=== PATIENT | female | born 1945 | race Caucasian/White ===

== ENCOUNTER 2021-08-24 07:20 | Day surgery (SDC) | payer MEDICARE, MEDICAID ==
[~2021-08-24 07:20] MED LIST: Sodium Chloride 0.9% 10 ML Syringe FLUSH PRN
[2021-08-24] MEDS ORDERED: Propofol 200 MG/20 ML SDV IV ONE (07:21)
[2021-08-24] MEDS: Lactated Ringers 1,000 ML IV SCH (07:50)
[2021-08-24] MEDS: Albuterol/Ipratropium 3.0-0.5 MG/3 ML Neb Soln NEB ONE (07:57)
--- NOTE | 2021-08-24 08:52 | PCM.HP.2 ---
H&P History of Present Illness - General Date of Service: 08/24/21 Admit Problem/Dx: Admission Diagnosis/Problem Admission Diagnosis/Problem Colonoscopy Source of Information: Patient, Old Records History Limitations: Reports: No Limitations - History of Present Illness Initial Comments - Free Text/Narative: Here for colonoscopy for change in bowel habits - Related Data Allergies/Adverse Reactions: Allergies Allergy/AdvReac Type Severity Reaction Status Date / Time lactulose Allergy Cannot Verified 08/24/21 07:37 Remember metoclopramide [From Reglan] Allergy Cannot Verified 08/24/21 07:37 Remember Home Medications: Home Meds Acetaminophen [Tylenol Extra Strength] 1,000 mg PO TID 08/23/21 [History] Albuterol Sulfate [Albuterol Sulfate Hfa] 2 puff INH Q6H PRN 08/23/21 [History] Alendronate [Fosamax] 35 mg PO Q7D 08/23/21 [History] Carboxymethylcellulose Sodium [Refresh Tears] 1 drop EYEBOTH TID 08/23/21 [History] Cyanocobalamin (Vitamin B12) [Vitamin B12] 1,000 mcg INJECT Q30D 08/23/21 [History] DULoxetine [Cymbalta] 60 mg PO DAILY 08/23/21 [History] Diclofenac Sodium [Voltaren 1% Gel] 2 gm TOP BID PRN 08/23/21 [History] Ergocalciferol (Vitamin D2) [Vitamin D2] 50,000 unit PO Q7D 08/23/21 [History] Ferrous Sulfate 325 mg PO Q48H 08/23/21 [History] Fluticasone Propionate [Flonase] 1 spray NASBOTH DAILY 08/23/21 [History] Fluticasone/Vilanterol [Breo Ellipta 100-25 MCG Inhalation Kit] 1 puff INH DAILY 08/23/21 [History] Gabapentin [Neurontin] 800 mg PO QID 08/23/21 [History] Ketoconazole [Ketoconazole 2%] 1 applic TOP BID 08/23/21 [History] Lidocaine 5% [Lidoderm 5%] 1 patch TOP DAILY PRN 08/23/21 [History] Melatonin 6 mg PO BEDTIME 08/23/21 [History] Omeprazole Magnesium [Prilosec Otc] 20 mg PO DAILY 08/23/21 [History] Sennosides/Docusate Sodium [Senna-Docusate Sodium Tablet] 1 tab PO DAILY 08/23/21 [History] atorvaSTATin Calcium [Lipitor] 20 mg PO DAILY 08/23/21 [History] levETIRAcetam [Keppra] 750 mg PO BID 08/23/21 [History] polyethylene glycoL 3350 [MiraLAX] 17 gm PO DAILY 08/23/21 [History] traZODone 50 mg PO BEDTIME 08/23/21 [History] valACYclovir [Valtrex] 1,000 mg PO 08/23/21 [History] Past Medical History HEENT History: Reports: None, Cataract Cardiovascular History: Reports: High Cholesterol, Hypertension Respiratory History: Reports: Asthma, COPD Gastrointestinal History: Reports: Diverticulosis, Irritable Bowel Syndrome Genitourinary History: Reports: None [employer] ASSISTANT History: Reports: None Musculoskeletal History: Reports: Back Pain, Chronic, Neck Pain, Chronic Neurological History: Reports: Neuropathy, Peripheral, Seizure, Other (See Below) Other Neuro History: INSOMNIA Psychiatric History: Reports: Anxiety, Depression, Other (See Below) Other Psychiatric History: DEPENDENT PERSONALITY DISORDER. DYSTHYMIC DISORDER Endocrine/Metabolic History: Reports: Diabetes, Type II, Other (See Below) Other Endocrine/Metabolic History: NONALCOHOLIC LIVER DISEASE Hematologic History: Reports: None Immunologic History: Reports: None Oncologic (Cancer) History: Reports: None Dermatologic History: Reports: None - Past Surgical History Head Surgeries/Procedures: Reports: Craniotomy HEENT Surgical History: Reports: Adenoidectomy, Cataract Surgery, Tonsillectomy Cardiovascular Surgical History: Reports: None Respiratory Surgical History: Reports: None GI Surgical History: Reports: Cholecystectomy Female Surgical History: Reports: Hysterectomy Endocrine Surgical History: Reports: Thyroidectomy Neurological Surgical History: Reports: Other (See Below) Other Neurological Surgeries/Procedures: BENIGN BRAIN TUMOR WITH CRANIOTOMY EXCISION 03/01/12 Musculoskeletal Surgical History: Reports: Knee Replacement Oncologic Surgical History: Reports: None Dermatological Surgical History: Reports: None H&P Review of Systems - Review of Systems: Review Of Systems: Comprehensive ROS is negative, except as noted in HPI. Exam - Exam Exam: See Below - Vital Signs Vital Signs: Last Vital Signs Temp 97.7 F 08/24/21 07:15 Pulse 64 08/24/21 07:15 Resp 20 08/24/21 07:15 BP 126/66 08/24/21 07:15 Pulse Ox 95 08/24/21 07:15 Weight: 108.862 kg - Exam General: Alert, Oriented Lungs: Clear to Auscultation, Normal Respiratory Effort Cardiovascular: Regular Rate, Regular Rhythm Sepsis Event Note - Focused Exam Vital Signs: Vital Signs Temp Pulse Resp BP Pulse Ox 08/24/21 07:15 97.7 F 64 20 126/66 95 Problem List Initiated/Reviewed/Updated: Yes Orders Last 24hrs: Active Orders 24 hr Category Date Time Status Patient Status [ADT] Routine ADT 08/24/21 07:15 Active Patient to Empty Bladder [RC] ASDIRECTED Care 08/24/21 07:15 Active RT Aerosol Therapy [RC] ASDIRECTED Care 08/24/21 07:53 Active Verify Patient Consent Obtain [RC] ASDIRECTED Care 08/24/21 07:15 Active Nothing Per Oral Diet [DIET] Diet 08/24/21 Breakfast Ordered Lactated Ringers [Ringers, Lactated] 1,000 ml Med 08/24/21 07:15 Active IV ASDIRECTED Sodium Chloride 0.9% [Saline Flush] Med 08/24/21 07:15 Active 10 ml FLUSH ASDIRECTED PRN Peripheral IV Insertion Adult [OM.PC] Routine Oth 08/24/21 07:15 Ordered Resuscitation Status Routine Resus Stat 08/23/21 10:29 Ordered Medication Orders Lactated Ringer's (Ringers, Lactated) 1,000 mls @ 125 mls/hr IV ASDIRECTED JESUS Last Admin: 08/24/21 07:50 Dose: 125 mls/hr Documented by: [email or web address] Sodium Chloride (Sodium Chloride 0.9% 10 Ml Syringe) 10 ml FLUSH ASDIRECTED PRN PRN Reason: Keep Vein Open Assessment/Plan Comment:: Change in bowel habits Ok to proceed with colonoscopy, risks and complications reviewed, consent obtained
--- NOTE | 2021-08-24 09:09 | PCM.OPNOTE ---
- General Post-Op/Procedure Note Date of Surgery/Procedure: 08/24/21 Operative Procedure(s): Colonoscopy Findings: Few tics Pre Op Diagnosis: Change in bowel habits Post-Op Diagnosis: Same Anesthesia Technique: MAC Primary Surgeon: Tonio Blas Anesthesia Provider: Elton Smith Complications: None Condition: Good
--- NOTE | 2021-08-24 10:53 | OR ---
DATE OF OPERATION: 08/24/2021 SURGEON: Tonio Blas MD PREOPERATIVE DIAGNOSIS: Change in bowel habits. POSTOPERATIVE DIAGNOSIS: Sigmoid diverticulosis. PROCEDURE: Colonoscopy. ANESTHESIA: IV sedation. DESCRIPTION OF PROCEDURE: The patient was brought to the procedure room, where she was placed on her left side and IV sedation administered. Digital rectal exam was performed, which was normal. The colonoscope was inserted and advanced to the level of the cecum with some difficulty getting through the right colon, requiring some pressure on the abdomen. Cecum was reached and confirmed by identifying the appendiceal lumen and ileocecal valve. Prep was fair with some liquid stool remaining throughout that was mostly irrigated and suctioned. Upon withdrawing the scope, the ascending, transverse, and descending colon were normal in appearance. The sigmoid colon had a few diverticula present. Rectum was normal and retroflexion was normal. Air was removed and the scope withdrawn. The patient tolerated the procedure well and returned to recovery in stable condition. No further colonoscopies are necessary due to patient's age. /[id number] ROB/NAZARIO
== END 2021-08-24 10:05 | disposition home or self-care (01) ==
LOC: FB.SDS 07:20
PROVIDERS: ATTEND Surgery
DX: K57.30 Diverticulosis of large intestine without perforation or abscess without bleeding (principal); E78.00 Pure hypercholesterolemia, unspecified; I11.0 Hypertensive heart disease with heart failure; I50.9 Heart failure, unspecified; K58.9 Irritable bowel syndrome, unspecified; J44.9 Chronic obstructive pulmonary disease, unspecified; E11.40 Type 2 diabetes mellitus with diabetic neuropathy, unspecified; Z79.899 Other long term (current) drug therapy; Z98.890 Other specified postprocedural states; Z90.49 Acquired absence of other specified parts of digestive tract
CPT/HCPCS: 00812-QZ; 94640; J2704; J7120; J7620-GY